=== PATIENT | female | born 1960 ===

== ENCOUNTER 2023-10-27 11:30 | Inpatient (IN) | payer OTHER ==
[~2023-10-27] VITALS: Ht 154.9 cm; Wt 113.4 kg
[2023-10-27] MEDS ORDERED: DICLOFENAC-MIS1 EAC3 PO (13:55)
[2023-10-27] MEDS ORDERED: ROSUVASTATIN CA20 MG PO (13:55)
[2023-10-27] MEDS ORDERED: OMEGA-31000 MG PO (13:56)
[2023-10-27] MEDS ORDERED: OSTERA TABLET1 EACH PO (13:56)
[2023-11-04] MEDS ORDERED: KETOROLAC TROMETHAMINE 30 MG VIAL ONE (06:50)
[2023-11-04] MEDS ORDERED: CEFAZOLIN SODIUM 1,000 MG VIAL ONE ×2 (06:50→11:58)
[2023-11-04] MEDS ORDERED: BUPIVACAINE HCL/PF 0.5% 30ML ML ONE (06:51)
[2023-11-04] MEDS ORDERED: TRANEXAMIC ACID 100MG/1ML (1000MG) AMPUL IV ONE ×3 (06:51→12:15)
[2023-11-04] MEDS ORDERED: LIDOCAINE HCL/EPINEPHRINE 10MG/ML 1% 50ML IJ ONE (06:51)
[2023-11-04] MEDS ORDERED: VANCOMYCIN HCL 1,000 MG VIAL ONE (06:51)
[2023-11-04] MEDS ORDERED: POVIDONE-IODINE 3 EA MED..SWAB TOP ONE (07:09)
[2023-11-04] MEDS ORDERED: METHYLPREDNISOLONE ACETATE 80 MG/ML VIAL ONE (07:10)
[2023-11-04] MEDS ORDERED: DIPHENHYDRAMINE HCL 50 MG/ML VIAL 1ML ONE (07:13)
[2023-11-04] MEDS ORDERED: OxyCODONE HCL/APAP UD (PERCOCET) PO PRN (08:00)
[2023-11-04] MEDS ORDERED: ONDANSETRON HCL 2 MG/ML VIAL IV PRN (08:00)
[2023-11-04] MEDS ORDERED: BUPIVACAINE HCL 250MG/50ML VIAL IJ ONE (09:00)
[2023-11-04] MEDS ORDERED: ISOPROPYL ALCOHOL 30 ML OUNCE TOP ONE (09:00)
[2023-11-04] MEDS ORDERED: METHYLPREDNISOLONE ACETATE 80 MG/ML VIAL IJ ONE (09:00)
[2023-11-04] MEDS ORDERED: LIDOCAINE HCL/EPINEPHRINE 20 ML VIAL IJ ONE (09:00)
[2023-11-04] MEDS ORDERED: KETOROLAC TROMETHAMINE 30 MG VIAL IV ONE (09:00)
[2023-11-04] MEDS ORDERED: MORPHINE SULFATE 4 MG/ML CARTRIDGE IV ONE (09:00)
[2023-11-04] MEDS ORDERED: POVIDONE-IODINE 0.75 OZ PACKET TOP ONE (09:00)
[2023-11-04] MEDS ORDERED: KETOROLAC TROMETHAMINE 30 MG VIAL IJ ONE (09:00)
[2023-11-04] MEDS ORDERED: ENOXAPARIN SODIUM 30 MG/0.3 ML SYRINGE SUBCUTANEO SCH (09:00)
[2023-11-04] MEDS ORDERED: CEFAZOLIN SODIUM 1,000 MG VIAL IV ONE (09:00)
[2023-11-04] MEDS ORDERED: MORPHINE SULFATE 4 MG/ML CARTRIDGE IV SCH (12:00)
[2023-11-04] MEDS ORDERED: CEFAZOLIN SODIUM 1,000 MG VIAL IV SCH (12:00)
[2023-11-04] MEDS ORDERED: ORPHENADRINE CITRATE 100 MG TABLET PO SCH (21:00)
[2023-11-04] MEDS ORDERED: GABAPENTIN 100 MG CAPSULE PO SCH (21:00)
[2023-11-05 01:51] LABS: HEMATOCRIT 36.8 % (36.0-45.00); HEMOGLOBIN 12.2 g/dL (12.0-15.00); MEAN CELL VOLUME 75.9 fL (80.00-100.00); MEAN CORPUSCULAR HEMOGLOBIN 25.1 pg (27.00-32.0); MEAN CORPUSCULAR HGB CONC 33.1 g/dl (32.0-36.0); PLATELET COUNT 277 K/uL (150-450); RED BLOOD COUNT 4.85 M/uL (4.00-6.00); RED CELL DISTRIBUTION WIDTH 16.2 % (11.5-14.5)
[2023-11-05] MEDS ORDERED: VITAMIN B COMPLEX 1 EACH PO SCH (21:16)
[2023-11-05] MEDS ORDERED: Cyanocobalamin/Mecobalamin 1 TAB.SL SL SCH (21:17)
[2023-11-05] MEDS ORDERED: SOD FERRIC GLUC COMPLX/SUCROSE 62.5 MG/5 ML AMPUL IV SCH (21:17)
[2023-11-06 07:18] LABS: HEMATOCRIT 36.7 % (36.0-45.00); HEMOGLOBIN 12.2 g/dL (12.0-15.00); MEAN CELL VOLUME 76.8 fL (80.00-100.00); MEAN CORPUSCULAR HEMOGLOBIN 25.6 pg (27.00-32.0); MEAN CORPUSCULAR HGB CONC 33.4 g/dl (32.0-36.0); PLATELET COUNT 268 K/uL (150-450); RED BLOOD COUNT 4.77 M/uL (4.00-6.00)
[2023-11-06] MEDS ORDERED: OXYC1TAB9 PO (11:03)
[2023-11-06] MEDS ORDERED: GABAPENTIN100 MG PO (11:03)
[2023-11-06] MEDS ORDERED: NORFLEX100MG PO (11:03)
[2023-11-06] MEDS ORDERED: XARELTO10 MG PO (11:04)
== END 2023-11-06 14:43 | disposition home or self-care (01) | DRG 470 ==
LOC: O/R 11-04 05:17 → OB/GYN 11-04 11:04 → SURG 11-04 11:30 → OB/GYN 11-06 14:43
PROVIDERS: ADMIT Orthopaedic Surgery; ATTEND Orthopaedic Surgery
PROC: 0SRD0JZ Replacement of Left Knee Joint with Synthetic Substitute, Open Approach (ICD-10-PCS; principal; 2023-11-04 19:45)
DX: M17.12 Unilateral primary osteoarthritis, left knee (principal); D62 Acute posthemorrhagic anemia; M85.662 Other cyst of bone, left lower leg; R26.89 Other abnormalities of gait and mobility